=== PATIENT | female | born 1930 | race Caucasian/White ===

== ENCOUNTER 2017-06-05 16:23 | Inpatient (IN) | payer MEDICARE, BC ==
[~2017-06-05] VITALS: Ht 157.5 cm; Wt 89.5 kg
[2017-06-05 17:04] VITALS: BP 153/88
[2017-06-05 17:23] VITALS: BP 153/88
[2017-06-05] MEDS ORDERED: HYDROCODONE/ACETAMINOPHEN 5/325MG TABLET PO PRN (18:15)
[2017-06-05] MEDS ORDERED: ACETAMINOPHEN 325MG TABLET PO PRN (18:15)
[2017-06-05 18:56] LABS: BASOPHILS % 0.8 % (0.0-2.0); EOSINOPHILS % 2.2 % (0.0-5.0); HEMATOCRIT. 36.1 % (36.0-48.0); HEMOGLOBIN. 11.9 g/dL (12.0-16.0); LYMPHOCYTES % 17.1 % (20.0-50.0); MEAN CORPUSCULAR HEMOGLOBIN 31.4 pg (28.0-32.0); MEAN CORPUSCULAR VOLUME 95.3 fL (81.0-99.0); MEAN PLATELET VOLUME 9.5 fl (7.4-10.4); MONOCYTES % 8.6 % (2.0-8.0); NEUTROPHILS % 71.3 % (40.0-76.0); PLATELET 325 x1000/uL (130-400); RED BLOOD CELL COUNT 3.79 mill/uL (4.2-5.4); RED CELL DISTRIBUTION WIDTH 14.4 % (11.6-14.6)
[2017-06-05 19:04] LABS: INR 1.4; PARTIAL THROMBOPLASTIN TIME 52.3 sec (23.4-31.0); PROTHROMBIN TIME 14.2 sec (9.4-11.6)
[2017-06-05] MEDS: DULOXETINE HCL 30MG DR CAPSULE PO SCH (19:25)
[2017-06-05] MEDS: LOSARTAN POTASSIUM 25 MG TABLET PO SCH (19:25)
[2017-06-05 20:01] VITALS: BP 118/47
[2017-06-05] MEDS: ATORVASTATIN CALCIUM 10MG TABLET PO SCH (21:36)
[2017-06-05 22:01] VITALS: BP 144/51
[2017-06-06] VITALS (12 sets, daily range): BP systolic 113–155; BP diastolic 35–58
[2017-06-06] MEDS ORDERED: MAX25 (01:07)
[2017-06-06] MEDS ORDERED: DULO30CA51 (01:07)
[2017-06-06] MEDS ORDERED: RIVA10TA (01:07)
[2017-06-06] MEDS ORDERED: NIFE30TA83 (01:07)
[2017-06-06] MEDS ORDERED: LOSA1TAB33 (01:07)
[2017-06-06] MEDS ORDERED: NIFE30TA94 (01:07)
[2017-06-06] MEDS ORDERED: LOVA40TA73 (01:07)
[2017-06-06] MEDS ORDERED: XAR15 (01:07)
[2017-06-06] MEDS ORDERED: SOTA80TA (01:07)
[2017-06-06] MEDS ORDERED: SODIUM CHLORIDE 0.45% 1,000 ML IV SCH (06:00)
[2017-06-06 07:11] LABS: HEMATOCRIT. 36.1 % (36.0-48.0); HEMOGLOBIN. 11.9 g/dL (12.0-16.0); LYMPHOCYTES % 20.8 % (20.0-50.0); MEAN CORPUSCULAR HEMOGLOBIN 31.6 pg (28.0-32.0); MEAN CORPUSCULAR VOLUME 95.5 fL (81.0-99.0); MEAN PLATELET VOLUME 9.8 fl (7.4-10.4); MONOCYTES % 10.5 % (2.0-8.0); NEUTROPHILS % 64.7 % (40.0-76.0); PLATELET 299 x1000/uL (130-400); RED BLOOD CELL COUNT 3.78 mill/uL (4.2-5.4); RED CELL DISTRIBUTION WIDTH 14.4 % (11.6-14.6)
[2017-06-06] MEDS: DULOXETINE HCL 30MG DR CAPSULE PO SCH (08:08)
[2017-06-06] MEDS: LOSARTAN POTASSIUM 25 MG TABLET PO SCH (08:08)
[2017-06-06] MEDS ORDERED: ATROPINE SULFATE 1MG/10ML SYR IV PRN (10:15)
[2017-06-06] MEDS ORDERED: SODIUM CHLORIDE 0.45% IV SCH (10:42)
[2017-06-06] MEDS ORDERED: SODIUM BICARBONATE IV SCH (10:42)
[2017-06-06] MEDS: SODIUM CHLORIDE 0.45% IV SCH (11:27)
[2017-06-06] MEDS: SODIUM ACETATE IV SCH (11:27)
[2017-06-06] MEDS: ATORVASTATIN CALCIUM 10MG TABLET PO SCH (20:42)
[2017-06-07] VITALS (13 sets, daily range): BP systolic 127–173; BP diastolic 43–85
[2017-06-07] MEDS: SODIUM CHLORIDE 0.45% IV SCH ×2 (01:17→20:34)
[2017-06-07] MEDS: SODIUM ACETATE IV SCH ×2 (01:17→20:34)
[2017-06-07 07:17] LABS: BASOPHILS % 0.5 % (0.0-2.0); EOSINOPHILS % 3.6 % (0.0-5.0); HEMATOCRIT. 32.3 % (36.0-48.0); HEMOGLOBIN. 10.8 g/dL (12.0-16.0); LYMPHOCYTES % 21.3 % (20.0-50.0); MEAN CORPUSCULAR HEMOGLOBIN 31.6 pg (28.0-32.0); MEAN CORPUSCULAR VOLUME 94.6 fL (81.0-99.0); MEAN PLATELET VOLUME 9.7 fl (7.4-10.4); MONOCYTES % 9.5 % (2.0-8.0); NEUTROPHILS % 65.1 % (40.0-76.0); PLATELET 258 x1000/uL (130-400); RED BLOOD CELL COUNT 3.41 mill/uL (4.2-5.4); RED CELL DISTRIBUTION WIDTH 14.2 % (11.6-14.6)
[2017-06-07] MEDS: DULOXETINE HCL 30MG DR CAPSULE PO SCH (08:36)
[2017-06-07] MEDS: LOSARTAN POTASSIUM 25 MG TABLET PO SCH (08:37)
[2017-06-07] MEDS ORDERED: GENTAMICIN/NS IRRIGATION 500 ML IR ONE (13:55)
[2017-06-07] MEDS ORDERED: CEFAZOLIN 1000MG PREMIX 50 ML IV ONE ×2 (14:04→14:36)
[2017-06-07] MEDS ORDERED: DIPHENHYDRAMINE 50MG/ML VIAL ONE (15:00)
[2017-06-07] MEDS ORDERED: IBUTILIDE FUMARATE 0.1MG/ML 10ML VIAL IV ONE (15:34)
[2017-06-07] MEDS ORDERED: MIDAZOLAM HCL 2 MG/2 ML VIAL ONE (15:48)
[2017-06-07] MEDS ORDERED: SOTALOL HCL 80MG TABLET PO NR (16:15)
[2017-06-07] MEDS ORDERED: HYDROCODONE/ACETAMINOPHEN 5/325MG TABLET PO PRN (16:15)
[2017-06-07] MEDS: ATORVASTATIN CALCIUM 10MG TABLET PO SCH (20:37)
[2017-06-08] VITALS (8 sets, daily range): BP systolic 129–154; BP diastolic 65–76
[2017-06-08] MEDS: SODIUM CHLORIDE 0.45% IV SCH ×2 (04:21→09:08)
[2017-06-08] MEDS: SODIUM ACETATE IV SCH ×2 (04:21→09:08)
[2017-06-08 06:11] LABS: BASOPHILS % 0.6 % (0.0-2.0); EOSINOPHILS % 2.9 % (0.0-5.0); HEMATOCRIT. 32.5 % (36.0-48.0); LYMPHOCYTES % 13.1 % (20.0-50.0); MEAN CORPUSCULAR HEMOGLOBIN 31.8 pg (28.0-32.0); MEAN PLATELET VOLUME 9.5 fl (7.4-10.4); MONOCYTES % 9.4 % (2.0-8.0); PLATELET 259 x1000/uL (130-400); RED BLOOD CELL COUNT 3.46 mill/uL (4.2-5.4); RED CELL DISTRIBUTION WIDTH 14.1 % (11.6-14.6)
[2017-06-08] MEDS ORDERED: SOTALOL HCL 80MG TABLET PO SCH (09:00)
[2017-06-08] MEDS: LOSARTAN POTASSIUM 25 MG TABLET PO SCH (09:02)
[2017-06-08] MEDS: DULOXETINE HCL 30MG DR CAPSULE PO SCH (09:02)
== END 2017-06-08 14:25 | disposition home health service (06) | DRG 242 ==
LOC: 3WST 16:23
PROVIDERS: ADMIT Specialist; ATTEND Specialist
PROC: 0JH606Z Insertion of Pacemaker, Dual Chamber into Chest Subcutaneous Tissue and Fascia, Open Approach (ICD-10-PCS; principal; 2017-06-07)
PROC: 02H63JZ Insertion of Pacemaker Lead into Right Atrium, Percutaneous Approach (ICD-10-PCS; 2017-06-07)
PROC: 02HK3JZ Insertion of Pacemaker Lead into Right Ventricle, Percutaneous Approach (ICD-10-PCS; 2017-06-07)
PROC: B5171ZZ Fluoroscopy of Left Subclavian Vein using Low Osmolar Contrast (ICD-10-PCS; 2017-06-07)
DX: I49.5 Sick sinus syndrome (principal); N17.0 Acute kidney failure with tubular necrosis; I48.0 Paroxysmal atrial fibrillation; D63.8 Anemia in other chronic diseases classified elsewhere; I08.0 Rheumatic disorders of both mitral and aortic valves; I25.10 Atherosclerotic heart disease of native coronary artery without angina pectoris; N18.9 Chronic kidney disease, unspecified; I13.10 Hypertensive heart and chronic kidney disease without heart failure, with stage 1 through stage 4 chronic kidney disease, or unspecified chronic kidney disease
CPT/HCPCS: 33208; 36415; 71010; 71020; 75820; 80048; 83735; 84443; 85025; 85610; 85730; 93005; A4565; C1785; C1892; C1893; C1898; J0690; J1200; J1742; J2250; J3490; J7040